=== PATIENT | male | born 1990 | race African-American/Black ===

== ENCOUNTER 2021-06-02 22:43 | Emergency (ER) | payer OTHER, SELFPAY ==
--- NOTE | ~2021-06-02 | CT_ITS ---
EXAMINATION: CT brain wo con DATE: 06/03/2021 02:54 INDICATION: Headache TECHNIQUE: Computed tomography (CT) of the head was performed without intravenous contrast. The mA wa s adjusted according to patient size. Iterative reconstruction technique was employed. Exam dose: 60 5.33 mGy-cm total exam DLP. COMPARISON: 02/22/2012 MR brain FINDINGS: No intracranial mass lesion or hemorrhage or cerebrovascular accident. No midline shift or mass effect effect. Normal ventricular size. Normal avila-white matter differentiation. No subdural or epidural hematoma. The included mastoid air cells and paranasal sinuses are normally developed and aerated. No fracture or bone destruction of the cranial vault. IMPRESSION: No significant abnormality Reviewed, dictated and finalized at [facility]. Reviewed, dictated and finalized at [facility]. IMPRESSION: No significant abnormality
[2021-06-02 23:01] VITALS: BP 124/79; PULSE 92; RESP 16; TEMP 36.7; O2SAT 100
--- NOTE | 2021-06-03 01:14 | PC.NURSE ---
Pt at vending machine purchasing bottle of H20. This RN asked pt if his nausea had resolved since he had not vomited since his arrival in ED. Pt responded that he needed the water BECAUSE he was so nauseous. Verbal education provided by this RN, which pt ignored as he walked back to Family Services room, which was only area in that did not hurt his eyes.
[2021-06-03] MEDS: diphenhydrAMINE HCl INJ 50 MG/ML VIAL IV PUSH (02:18)
[2021-06-03] MEDS: SODIUM CHLORIDE 0.9% IV 1,000 ML 999 ML IV CONT (02:19)
[2021-06-03] MEDS: KETOROLAC 30 MG/ML VIAL (*BKC) IV PUSH (02:19)
[2021-06-03] MEDS: PROCHLORPERAZINE EDISYLATE 10 MG/2 ML VIAL IV PUSH (02:22)
--- NOTE | 2021-06-03 02:45 | ED.GENADULT ---
HPI - General Adult General Chief complaint: Headache Stated complaint: headache Time Seen by Provider: 06/03/21 01:51 History of Present Illness HPI narrative: Patient is a 30-year-old gentleman who presents the emergency department with chief complaint of headache. Patient reports he is having photophobia and nausea reports that started this evening but has had several other headaches recently patient did report that about a week ago he was struck in the head while he was playing basketball the patient reports no loss of consciousness but states that these episodes started after that patient states he is having no focal neurological deficit reports that it is more in the right eye area and radiates back through his head. Review of Systems Review of Systems: Narrative: A 10 system review of systems was completed on the patient and is negative except for what is stated in the HPI. Nursing and ancillary documentation was reviewed. Exam Narrative: Exam Narrative: GENERAL: Well-appearing, well-nourished, and in no acute distress. HEAD: Normocephalic, atraumatic. EYES: PERRLA and EOMI. ENT: Nares clear, no rhinorrhea or epistaxis. Mucous membranes moist. NECK: Supple. CHEST: Clear to auscultation. No respiratory distress. HEART: Regular rate and rhythm. No murmur heard. Normal peripheral pulses. ABDOMEN: Soft, nontender, nondistended, normal active bowel sounds. EXTREMITIES: Normal range of motion. No edema. SKIN: Warm, dry, no rash. NEURO: No focal deficits. Alert and oriented x3. PSYCH: Normal mood and affect. Course Vital Signs Vital signs: Vital Signs Temperature 36.7 C 06/02/21 23:01 Pulse Rate 92 06/02/21 23:01 Respiratory Rate 16 06/02/21 23:01 Blood Pressure 124/79 06/02/21 23:01 Pulse Oximetry 100 06/02/21 23:01 Temperature 36.7 C 06/02/21 23:01 Pulse Rate 92 06/02/21 23:01 Respiratory Rate 16 06/02/21 23:01 Blood Pressure 124/79 06/02/21 23:01 Pulse Oximetry 100 06/02/21 23:01 Medical Decision Making Vital Signs Vital Signs: Vital Signs Temperature 36.7 C 06/02/21 23:01 Pulse Rate 92 06/02/21 23:01 Respiratory Rate 16 06/02/21 23:01 Blood Pressure 124/79 06/02/21 23:01 Pulse Oximetry 100 06/02/21 23:01 Temperature 36.7 C 06/02/21 23:01 Pulse Rate 92 06/02/21 23:01 Respiratory Rate 16 06/02/21 23:01 Blood Pressure 124/79 06/02/21 23:01 Pulse Oximetry 100 06/02/21 23:01 Discharge Plan Discharge Clinical Impression: Headache Qualifiers: Headache type: unspecified Headache chronicity pattern: acute headache Intractability: not intractable Qualified Code(s): R51.9 - Headache, unspecified Patient Disposition: Home, Self-Care Condition: Stable Instructions: Antibiotic Form, Acute Headache (ED) Follow-up/Referrals: PHYSICIAN NOT ON STAFF,NONSTAFF [Primary Care Provider] - Time of Disposition: 03:43
== END 2021-06-03 04:22 | disposition home or self-care (01) ==
PROVIDERS: Emergency Provider Emergency Medicine
DX: R51.9 Headache, unspecified (principal)
CPT/HCPCS: 70450; 96361; 96374; 96375; 99284; J0780; J1200; J1885; J7030

== ENCOUNTER 2023-08-19 18:27 | Emergency (ER) | payer OTHER, SELFPAY ==
--- NOTE | ~2023-08-19 | CT_ITS ---
EXAMINATION: CTA brain carotid DATE: 08/19/2023 23:26 INDICATION: Cerebrovascular accident. Right arm tingling. Head pressure. TECHNIQUE: Computed tomographic angiography (CTA) of the head was performed without and with 100 mL O mnipaque-350 intravenous contrast. CTA of the neck was performed with intravenous contrast. Automated exposure control and iterative reconstruction technique were employed. The dose-length product was 1 914.10 mGy-cm. Maximum intensity projection and volume rendered 3D-reconstructions were created by bridgette dunne technologist on a separate workstation. COMPARISON: Head CT 06/03/2021, brain MRI 02/22/2012 FINDINGS: HEAD CTA: There is no intracranial hemorrhage, acute infarction, or abnormal intracranial mass lesion . The ventricles are normal in size. The paranasal sinuses are clear. The mastoid air cells are xiao l. The orbits are normal. The vertebral arteries are codominant. There is no significant stenosis of basilar artery or the posterior cerebral arteries. There is no significant stenosis of the intracrani al internal carotid arteries or anterior or middle cerebral arteries. Anterior communicating artery i s normal. The posterior communicating arteries are normal. There is no aneurysm. NECK CTA: There are no pathologically enlarged lymph nodes. There is no significant stenosis of the v ertebral arteries. The cervical carotid arteries are normal. There is 0% stenosis of the proximal rig ht internal carotid artery relative to normal distal artery lumen diameter (NASCET criteria). There i s 0% stenosis of the proximal left internal carotid artery relative to normal distal artery lumen shira meter. There is kyphosis of cervical spine. IMPRESSION: 1. Normal brain. No aneurysm or significant intracranial arterial stenosis. 2. 0% stenosis of the proximal internal carotid arteries relative to normal distal artery lumen diame ters (NASCET criteria). Reviewed, dictated and finalized at [facility]. IMPRESSION: 1. Normal brain. No aneurysm or significant intracranial arterial stenosis. 2. 0% stenosis of the proximal internal carotid arteries relative to normal dis sherin artery lumen diameters (NASCET criteria).
[2023-08-19 18:28] VITALS: BP 127/84; PULSE 60; RESP 18; TEMP 36.4; O2SAT 100
[2023-08-19 21:59] VITALS: BP 134/91; PULSE 72; RESP 18; O2SAT 100
--- NOTE | 2023-08-19 22:09 | ED.GENADULT ---
HPI - General Adult General Chief complaint: Headache Stated complaint: Head pressure, vision floaters, arm tingling Time Seen by Provider: 08/19/23 21:53 History of Present Illness HPI narrative: 32-year-old male presented to the ED for evaluation of intermittent right-sided headache, some blurred vision and some right arm tingling. Patient reports a prior history of migraine headache and states his headache is very similar. Patient reports the headache has been intermittent for the last week and the vision change has been intermittent over the last few days. Patient reports he did take some ibuprofen for pain control yesterday and this did help with his headache. Patient did not take any ibuprofen today. Patient states that he is not having blurred vision necessarily but states he suspects he may have some floaters. Patient states he has had some tingling of the right arm but denies any associated numbness or weakness. Related Data Allergies Allergy/AdvReac Type Severity Reaction Status Date / Time No Known Allergies Allergy Verified 08/19/23 18:28 Review of Systems Review of Systems: All systems reviewed & are unremarkable except as noted in HPI and below Exam Narrative: APPEARANCE: Well appearing, no pain, no distress, well-nourished. HEAD: normocephalic, atraumatic. EYES: PERRLA/EOMI, conjunctivae clear. NOSE: Normal no drainage EARS:TMS clear with good light reflex. THROAT: Pharynx clear, no exudate. NECK: Supple. No adenopathy, no masses. RESPIRATORY: Airway patent, respirations nonlabored. Clear to auscultation bilaterally, no rales, rhonchi, wheezing. CARDIOVASCULAR: Regular rate and rhythm without murmurs rubs or gallops. ABDOMINAL: Soft, nontender, nondistended, normal bowel sounds MUSCULOSKELETAL: Moves all extremities. Strength/ROM intact, No edema, No calf tenderness. NEURO: Alert. Cranial nerves II through XII intact. Normal comprehensive neuro exam SKIN: Warm, dry. Normal Color Course Course Emergency Course: 32-year-old male presented ED for evaluation of headache. Patient had negative imaging. Patient did feel improved with treatment. On reevaluation patient states he has no headache denies any vision changes and denies any numbness or tingling of his right arm. Low concern for CVA. Symptoms are more consistent with complex migraine. All question concerns were addressed. Patient was encouraged of close follow-up with primary care physician but is also being provided follow-up with neurology. All questions concerns were addressed. Vital Signs Vital signs: Vital Signs Temperature 97.6 F 08/19/23 18:28 Pulse Rate 60 08/19/23 18:28 Respiratory Rate 18 08/19/23 18:28 Blood Pressure 127/84 08/19/23 18:28 Pulse Oximetry 100 08/19/23 18:28 Oxygen Delivery Room Air 08/19/23 18:28 Temperature 97.6 F 08/19/23 18:28 Pulse Rate 70 08/20/23 01:15 Respiratory Rate 20 08/20/23 01:15 Blood Pressure 140/92 H 08/20/23 01:15 Pulse Oximetry 100 08/20/23 01:15 Oxygen Delivery Room Air 08/19/23 18:28 Medical Decision Making Differential Diagnosis Differential Diagnosis: Migraine, complex migraine, TIA, CVA Vital Signs Vital Signs: Vital Signs Temperature 97.6 F 08/19/23 18:28 Pulse Rate 60 08/19/23 18:28 Respiratory Rate 18 08/19/23 18:28 Blood Pressure 127/84 08/19/23 18:28 Pulse Oximetry 100 08/19/23 18:28 Oxygen Delivery Room Air 08/19/23 18:28 Temperature 97.6 F 08/19/23 18:28 Pulse Rate 70 08/20/23 01:15 Respiratory Rate 20 08/20/23 01:15 Blood Pressure 140/92 H 08/20/23 01:15 Pulse Oximetry 100 08/20/23 01:15 Oxygen Delivery Room Air 08/19/23 18:28 Lab Data Lab results reviewed: Yes I reviewed the patient's lab results. 08/19/23 22:11 08/19/23 22:11 Labs: Lab Results 08/19/23 Range/Units 22:11 WBC 4.9 (4.5-10.0) K/mm3 RBC 4.90 (4.6-6.20) M/mm3 Hgb 15.5
[2023-08-19 22:15] LABS: Basophils Percent Auto 0.4 % (0.2-1.2); Eosinophils Absolute Auto 0.1 K/mm3 (0-0.3); Eosinophils Percent Auto 1.4 % (0-4.4); Hematocrit 45.5 % (42.0-52.0); Hemoglobin 15.5 g/dL (14.0-18.0); Immature Granulocyte Absolute 0.01 K/mm3 (0.00-0.031); Immature Granulocyte Percent A 0.2 % (0-0.5); Lymphocytes Absolute Auto 2.48 K/mm3 (0.9-3.2); Lymphocytes Percent Auto 51.1 % (18.3-44.2); Mean Corpuscular HGB Conc 34.1 g/dl (32-36); Mean Corpuscular Hemoglobin 31.6 pg (26-34); Mean Corpuscular Volume 92.9 fl (80-100); Mean Platelet Volume 10.3 fl (7.4-10.4); Monocytes Absolute Auto 0.4 K/mm3 (0.1-0.6); Monocytes Percent Auto 8.7 % (2.6-8.5); Neutrophils Absolute Auto 1.9 K/mm3 (1.3-6.7); Neutrophils Percent Auto 38.2 % (45.5-73.1); Platelet Count Result 254 k/mm3 (150-375); Red Cell Distribution Width 11.8 % (11.5-14.5); White Blood Count 4.9 K/mm3 (4.5-10.0)
[2023-08-19 22:25] LABS: Alanine Aminotransferase 27 U/L (6-50); Albumin Level 4.9 g/dL (3.5-5.1); Alkaline Phosphatase 47 U/L (38-126); Anion Gap 8 mmol/L (8-16); Aspartate Amino Transferase 35 U/L (17-59); Bilirubin,Total 0.5 mg/dL (0.2-1.3); Blood Urea Nitrogen 19 mg/dL (9-20); Calcium 9.4 mg/dL (8.4-10.2); Carbon Dioxide 27 mmol/L (22-30); Chloride 104 mmol/L (98-107); Estimated CRCL calculation 95 ml/min; Estimated Glomerular Filt Rate > 60; Glucose 94 mg/dL (65-110); Potassium 4.3 mmol/L (3.4-5.0); Sodium 139 mmol/L (137-145)
[2023-08-19 22:27] LABS: Partial Thromboplastin Time 39.9 SECONDS (22.3-36.8); Prothrombin Time 13.8 Seconds (11.1-14.7)
[2023-08-19] MEDS: SODIUM CHLORIDE 0.9% IV 1,000 ML 999 ML IV CONT (22:59)
[2023-08-19] MEDS: diphenhydrAMINE HCl INJ 50 MG/ML VIAL 25 MG IV PUSH (23:01)
[2023-08-19] MEDS: PROCHLORPERAZINE EDISYLATE 10 MG/2 ML VIAL IV PUSH (23:01)
[2023-08-20 01:15] VITALS: BP 140/92; PULSE 70; RESP 20; O2SAT 100
== END 2023-08-20 01:17 | disposition home or self-care (01) ==
PROVIDERS: Emergency Provider Emergency Medicine
DX: R51.9 Headache, unspecified (principal)
CPT/HCPCS: 36415; 70496; 70498; 80053; 85025; 85610; 85730; 96361; 96374; 96375; 99284; J0780; J1200; J7030; Q9967

== ENCOUNTER 2025-06-14 10:26 | Emergency (ER) | payer OTHER, SELFPAY ==
--- NOTE | 2025-06-14 10:28 | ED_ITS ---
HPI - General Adult General Stated complaint: BOWEL/RECTAL ISSUE Time Seen by Provider: 06/14/25 10:27 Source: patient Mode of arrival: ambulatory Limitations: no limitations History of Present Illness HPI narrative: Patient is a 34-year-old male who presents with concern for blood when wiping yesterday. States he had a large hard bowel movement. Denies any blood in toilet water. Has been taking MiraLax in states he had normal bowel movement this morning. Denies any abdominal pain. Related Data Home Medications ?Medication ?Instructions ?Recorded ?Confirmed ?Last Taken ?Type atogepant 60 mg tablet (Qulipta) mg 06/14/25 Unknown History Allergies Allergy/AdvReac Type Severity Reaction Status Date / Time No Known Allergies Allergy Verified 08/19/23 18:28 Review of Systems Review of Systems: All systems reviewed & are unremarkable except as noted in HPI and below Constitutional: Constitutional: Denies body ache(s), Denies chills, Denies fatigue, Denies fever(s), Denies headache(s), Denies malaise and Denies weakness Eyes: Eyes: Denies blurry vision, Denies irritation and Denies loss of vision ENT: Denies otalgia, Denies headache(s), Denies nasal discharge, Denies sinus pain and Denies sore throat Cardiovascular: Cardiovascular: Denies chest pain, Denies irregular heart rhythm and Denies dyspnea Respiratory: Respiratory: Denies dyspnea Gastrointestinal: Gastrointestinal: Denies abdominal pain, Denies melena, Denies hematochezia, Reports constipation, Denies diarrhea, Denies nausea, Denies vomiting and Reports other (blood when wiping) Musculoskeletal: Musculoskeletal: Denies back pain, Denies myalgias and Denies arthralgias Integumentary/Breasts: Skin/Breast: Denies pruritus and Denies rash Neurologic: Denies headache(s), Denies loss of vision and Denies weakness Psychiatric: Psychiatric: Reports no additional psychiatric complaints Endocrine: Endocrine: Denies fatigue PMFSH Comments At time of signature, agree with nursing past medical, surgical, social and family history. There is no relevant family history pertinent to the presenting complaint. Exam Const: General: cooperative, healthy appearing, comfortable, no acute distress and well nourished Nutritional Appearance: well nourished Orientation/consciousness: patient oriented x3 Limitations: no limitations HENMT: Head: normal to inspection, normocephalic and atraumatic Ears: hearing grossly normal bilaterally and external ears normal Face/Nose/Sinus: Normal external nose present, normal facial exam and face symmetric Face and sinus: normal facial exam and face symmetric Mouth: Yes lip normal Eyes: General: appearance normal, both eyes and all related structures Alignment and Position: alignment normal and position normal Periorbital: periorbital findings normal Eyelids: eyelids normal Pupils: Equal, round and reactive pupils present EOM: EOMs intact bilaterally Neck: Neck: normal visual inspection, full ROM and supple Chest: Chest palpation & inspection: normal inspection of the chest Resp: Effort & Inspection: normal respiratory effort and able to speak in complete sentences Auscultation: clear to auscultation bilaterally Cardio: Rate: regular rate Rhythm: regular rhythm Heart sounds: S1 normal heart sound present and S2 normal heart sound present GI: Inspection: normal to inspection Rectal Exam: visual inspection normal, No External hemorrhoid(s) present and Laceration(s) present (GI) (right of anus, superficial abrasion) Skin: General skin exam: normal color and no rashes or lesions noted Neuro: General: patient oriented x3 and moves all extremities Cranial nerves: Yes Equal, round and reactive pupils present Speech: normal speech Gait exam (Neuro): Normal gait present Extrem: General: normal to inspection, full ROM and no edema Psych: Appearance: grossly normal and well kempt Mental Status: mental status grossly normal Speech and movement: Normal speech and movement present Affect: normal affect Attitude: cooperative Thought process: Normal thought process present Course Course Emergency Course: Patient is aware of diagnosis, understands and agrees to treatment plan. Anticipatory guidance given. Patient agrees to follow-up as directed and is aware of reasons to seek care at the emergency department. Portions of this record may have been created with voice recognition software Level of Care: Express Care Visit Vital Signs Vital signs: Reviewed Medical Decision Making MDM Narrative Medical decision making narrative: Pt well hydrated appearing, in no respiratory distress, hemodynamically stable. Recommend supportive care. The patient is stable at time of discharge the clinical impression was discussed and the patient was given the opportunity to ask questions, which were addressed as completely as possible given the information available at present. Anticipatory guidance and return to care precautions were discussed and the importance of primary care follow-up was stressed and encouraged. The patient voiced understanding of the plan, indicat ions to return, and the need for follow-up. Exam findings show no acute concerns or changes Patient is appropriate for outpatient treatment and follow-up. Differential Diagnosis Differential Diagnosis: Constipation, anus abrasion, hemorrhoids Medical Records Medical records reviewed: Yes I reviewed the external patient's medical records. Vital Signs Vital Signs: Reviewed Discharge Plan Discharge Clinical Impression: Abrasion of skin of anus Constipation Qualifiers: Constipation type: unspecified constipation type Qualified Code(s): K59.00 - Constipation, unspecified Patient Disposition: Home Condition: Stable Instructions: Constipation (ED) Additional Instructions: Take Miralax 1 capful twice daily until bowel movements are regular. To maintain soft stools after constipation is relieved, you may take Colace 100- 200 mg up to three times per day. Maintain fluid intake 6-8 glasses per day. Please increase fibers (fruits and vegetables) in your diet, or use bulk fiber supplements. Decrease or eliminate intake of fast food and junk foods. Use Aquaphor on anus to provide moisture and protection. Follow up with PCP as needed Patient Language: Citizen Of [place] Follow-up/Referrals: Cody,MD Patrick [Non-Staff] - 3 Days Stand Alone Forms: Work/School Release IP Time of Disposition: 10:53
[2025-06-14 10:37] VITALS: BP 126/79; PULSE 85; RESP 16; TEMP 36.8; O2SAT 100
== END 2025-06-14 11:01 | disposition home or self-care (01) ==
PROVIDERS: Emergency Provider Nurse Practitioner Family
DX: S30.817A Abrasion of anus, initial encounter (principal); K59.00 Constipation, unspecified; X58.XXXA Exposure to other specified factors, initial encounter
CPT/HCPCS: 99211; G0463

== ENCOUNTER 2025-07-18 15:14 | Outpatient (CLI) | payer OTHER, SELFPAY ==
--- OUTSIDE RECORDS SUMMARY | 2025-07-18 16:42 | XMS_ITS | Encounter Summary ---
Author Organization [facility] Address [address] [place] [id number] Care Team Providers Care Diagnostic Medical Sonographer Name Role Phone Non-Staff, Provider Primary Care Provider Venkat polk Encounter Details Date Type Department Care Team (Late st Contact Info) Description 07/13/2025 Arte Manifiesto Message [facility] Patient Accounts [address] [place] [address] [employer], [facility] Provider Auto Payment Declined Social History Tobacco Use Types Packs/Day Years Used Date Smoking Tobacco: Never Smokeless Tobacco: Never Alcohol Use Standard Drinks/Week Comments Not Currently 0 (1 standard drink = 0.6 oz pur e alcohol) Sex and Gender Information Value Date Recorded Sex Assigned at Male 02/05/2025 6:26 PM CDT Legal Sex Male 5:51 PM CDT Gender Identity Not on file Sexual Orientation Not on file documented as of this encounter Plan of Treatment Not on file documented as of this encounter Visit Diagnoses Not on filedocumented in this encounter Care Teams Diagnostic Medical Sonographer Relationship Specialty Start Date End Date Non-Staff, Provider PCP - General UNKNOWN PHYSICIAN SPECIALTY 02/05/25 documented as of this encounter
--- OUTSIDE RECORDS SUMMARY | 2025-07-18 16:42 | XMS_ITS | Clinical Summary ---
Author Organization [facility] Address [address] [place] [id number] Care Team Providers Care Soft Sugar Cutter Name Role Phone Non-Staff, Provider Primary Care Provider Venkat polk Allergies No known active allergies Medications No known medications Encounters Date Type Department Care Team Description 07/13/2025 [facility] Patient Accounts [address] [place] [address] [facility] Auto Payment Declined from Last 3 Months Social History Tobacco Use Types Packs/Day Years Used Date Smoking Tobacco: Never Smokeless Tobacco: Never Tobacco Cessation:Counseling Given: Not Answered Alcohol Use Standard Drinks/Week Comments Not Currently 0 (1 standard drink = 0.6 oz pur e alcohol) Sex and Gender Information Value Date Recorded Sex Assigned at Male 02/05/2025 6:26 PM CDT Legal Sex Male 5:51 PM CDT Gender Identity Not on file Sexual Orientation Not on file Last Filed Vital Signs Vital Sign Reading Time Taken Comments Blood Pressure 118/71 02/05/2025 9:14 PM CDT Pulse 94 02/05/2025 9:14 PM CDT Temperature 36.6 C (97.9 F) 02/05/2025 6:01 PM CDT Respiratory Rate 18 02/05/2025 9:14 PM CDT Oxygen Saturation 100% 02/05/2025 9:14 PM CDT Inhaled Oxygen Concentration - - Weight 80.7 kg (178 lb) 02/05/2025 6:01 PM CDT Height 175.3 cm (5' 9) 02/05/2025 6:01 PM CDT Body Mass Index 26.29 02/05/2025 6:01 PM CDT Plan of Treatment Health Maintenance Due Date Last Done Comments Annual Physical 1994 Hepatitis C 2009 DTaP, Tdap and Td Vaccines ( 1 - Tdap) 2010 Hepatitis B Vaccines (1 of 3 - 19+ 3-dose series) 2010 HPV Vaccines (1 - 3-dose SCD M series) 2018 COVID-19 Vaccine (4 - 2023-2 5 season) 2024 11/03/2021, 02/03/2021, 01/01/2021 Meningococcal B Vaccine Aged Out No l onger eligible based on patient's age to complete this topic Meningococcal Vaccine Aged Out No rodrigo gibran eligible based on patient's age to complete this topic Pneumococcal Vaccine: Pediatrics (0 to 5 Years) and At-Risk Patients (6 to 49 Years) Aged Out No longer eligible b ased on patient's age to complete this topic RSV Immunizations Under 20 Months Aged Out No longer eligible b ased on patient's age to complete this topic Insurance [employer] OPEN ACCESS [facility] Care Teams Soft Sugar Cutter Relationship Specialty Start Date End Date Non-Staff, Provider PCP - General UNKNOWN PHYSICIAN SPECIALTY 02/05/25
--- OUTSIDE RECORDS SUMMARY | 2025-07-18 16:42 | XMS_ITS | Clinical Summary ---
Author Organization [facility] Address [address] [place] [phone] Care Team Providers Care Cinder Pitman Name Role Phone Karen Deshpande Angelique ENGINE SPECIALIST Primary Care Provider Allergies No known active allergies Medications Qulipta 60 mg tablet 11/28/2024 Active Ubrelvy 100 mg tablet 11/28/2024 Active amitriptyline (ELAVIL) 10 mg tablet Take 10 mg at bedtime for two weeks, then increase to 20 mg at bedtime 60 tablet 11 05/16/2025 Active Active Problems No known active problems Encounters Date Type Department Care Team Description 05/16/2025 3:00 PM CDT Office Visit [facility] Neurology [address] [place] [phone] Frank Blank MD Migraine without aura and with status migrainosus, not intractable (Primary Dx) 04/20/2025 Results Follow-Up [facility] Neurology [address] [place] [phone] Frank Blank MD MRI Brain W WO Contrast 04/19/2025 4:28 PM CDT - 04/19/2025 11:59 PM CDT Hospital Encounter [facility] MRI [address] [place] [address] Migraine without aura and with status migrainosus, not intractable Discharge Disposition: Discharge to home or self care from Last 3 Months Medical History Medical History Date Comments Concussion Social History Tobacco Use Types Packs/Day Years Used Date Smoking Tobacco: Never Smokeless Tobacco: Never Tobacco Cessation:Counseling Given: Not Answered AUDIT-C Answer Date Recorded Q1: How often do you have a drink containing alc ohol? Monthly or less 12/20/2024 Q2: How many drinks containi ng alcohol do you have on a typical day when you are drinking? 1 or 2 12/20/2024 Q3: How often do you have si x or more drinks on one occasion? Never 12/20/2024 Sex and Gender Information Value Date Recorded Sex Assigned at Not on file Legal Sex Male 2:58 PM [employer] PROFESSION[employer] Gender Identity Not on file Sexual Orientation Not on file Obstetrics History Last Filed Vital Signs Vital Sign Reading Time Taken Comments Blood Pressure 126/72 05/16/2025 3:09 PM CDT Pulse 91 05/16/2025 3:09 PM CDT Temperature - - Respiratory Rate - - Oxygen Saturation 99% 05/16/2025 3:09 PM CDT Inhaled Oxygen Concentration - - Weight 81.6 kg (180 lb) 05/16/2025 3:09 PM CDT Height 175.3 cm (5' 9) 05/16/2025 3:09 PM CDT Body Mass Index 26.58 05/16/2025 3:09 PM CDT Plan of Treatment Health Maintenance Due Date Last Done Comments Depression Screening 1991 Hepatitis C Screening 1991 DTaP/Tdap/Td Vaccine (1 - Tdap) 2002 Varicella Vaccines (1 of 2 - 13+ 2-dose series) 2004 Hepatitis B Screening 2009 Regular Well Visit/Exam 18-64 2009 HPV Vaccines (1 - 3-dose SCD M series) 2018 Covid-19 Vaccine ( - 2023-2 5 season) 2024 11/03/2021, 02/03/2021, 01/01/2021 Influenza Vaccine (#1) 2025 08/17/2016 Pneumococcal vaccine <65 Aged Out No longer eligible based on patient's age to complete this topic Procedures Procedure Name Priority Date/Time Associated Diagnosis Comments MRI BRAIN W WO CONTRAST Schedule Routine, Read Routine (OP Routine) 04/19/2025 5:34 PM CDT Migraine without aura and with status migrainosus, not intractable from Last 3 Months Results * MRI Brain W WO Contrast (04/19/2025 5:34 PM CDT) Anatomical Region Laterality Modality Head and Neck N/A Magnetic Resonan ce 04/20/2025 6:50 AM CDT Narrative 04/20/2025 6:58 AM CDT EXAM DESCRIPTION: MRI BRAIN W WO CONTRAST REASON FOR STUDY: Headache, increasing frequency or severity Headaches, increasing in frequency/severity TECHNIQUE: Multiplanar imaging includes noncontrast T1, T2, FLAIR, diffusion with ADC map and post contrast T1 sequences. Additional sequence(s) sensitive to blood products. Images stored on PACS. CONTRAST TYPE/DOSE: 15mL of GADOTERATE MEGLUMINE 0.5 MMOL/ML INTRAVENOUS SOLUTION (SO) injected via intravenous COMPARISON: None available. FINDINGS: There is no diffusion restriction to suggest acute/recent infarction. No parenchymal susceptibility signal to indicate blood degradation products. Midline retro cerebellar extra-axial T2 hyperintensity following CSF signal all sequences in keeping with a viridiana cisterna magna. There is no hydrocephalus. The basilar cisterns are maintained. On postcontrast imaging, there is no enhancing parenchymal mass. The bilateral globes are symmetric. There is mucosal thickening in the bilateral ethmoid air cells. Trace T2 hyperintensities in the bilateral mastoid air cells. IMPRESSION: 1. No acute/recent infarction or enhancing parenchymal mass. 2. Other findings as above. 3. Previous imaging studies are not available for comparison. THIS IS AN ELECTRONICALLY VERIFIED FINAL REPORT 04/20/2025 6:58 AM - Electronically signed by Jose L DAWKINS T: Report ID: [id number] Reading Location: [id number] Procedure Note Jose L Ross DO - 04/20/2025 EXAM DESCRIPTION: MRI BRAIN W WO CONTRAST REASON FOR STUDY: Headache, increasing frequency or severity Headaches, increasing in frequency/severity TECHNIQUE: Multiplanar imaging includes noncontrast T1, T2, FLAIR,diffusion with ADC map and post contrast T1 sequences. Additional sequence(s)sensitive to blood products. Images stored on PACS. CONTRAST TYPE/DOSE: 15mL of GADOTERATE MEGLUMINE 0.5 MMOL/ML INTRAVENOUS SOLUTION (SO) injected via intravenous COMPARISON: None available. FINDINGS: There is no diffusion restriction to suggest acute/recent infarction. No parenchymal susceptibility signal to indicate blood degradationproducts. Midline retro cerebellar extra-axial T2 hyperintensity following CSFsignal all sequences in keeping with a viridiana cisterna magna. There is no hydrocephalus. The basilar cisterns are maintained. On postcontrast imaging, there is no enhancing parenchymal mass. The bilateral globes are symmetric. There is mucosal thickening in the bilateral ethmoid air cells. Trace T2 hyperintensities in the bilateral mastoid air cells. IMPRESSION: 1. No acute/recent infarction or enhancing parenchymal mass. 2. Other findings as above. 3. Previous imaging studies are not available for comparison. THIS IS AN ELECTRONICALLY VERIFIED FINAL REPORT 04/20/2025 6:58 AM - Electronically signed by Jose L DAWKINS T: Report ID: [id number] Reading Location: [place] [address] Frank Blank MD IMG MRI PROCEDURES Final Resul t from Last 3 Months Insurance [facility] [id number] Care Teams Cinder Pitman Relationship Specialty Start Date End Date Karen Deshpande NP [address] [place] [address] [place] [address] PCP - General Nurse Practitioner 11/29/24
[2025-07-18 18:31] LABS: Hematocrit 43.4 % (42.0-52.0); Hemoglobin 14.8 g/dL (14.0-18.0); Mean Corpuscular HGB Conc 34.1 g/dl (32-36); Mean Corpuscular Hemoglobin 31.2 pg (26-34); Mean Corpuscular Volume 91.4 fl (80-100); Platelet Count Result 240 k/mm3 (150-375); Red Blood Count 4.75 M/mm3 (4.6-6.20); White Blood Count 3.8 K/mm3 (4.5-10.0)
[2025-07-18 18:43] LABS: Alanine Aminotransferase 29 U/L (6-50); Albumin Level 4.6 g/dL (3.5-5.1); Alkaline Phosphatase 55 U/L (38-126); Anion Gap 5 mmol/L (4-12); Aspartate Amino Transferase 42 U/L (17-59); Bilirubin,Total 0.4 mg/dL (0.2-1.3); Blood Urea Nitrogen 18 mg/dL (9-20); Calcium 9.4 mg/dL (8.4-10.2); Carbon Dioxide 29 mmol/L (22-30); Chloride 103 mmol/L (98-107); Cholesterol 165 mg/dL (0-200); Estimated Glomerular Filt Rate > 60; Glucose 93 mg/dL (65-110); HDL Direct 54 mg/dL; Potassium 4.1 mmol/L (3.4-5.0); Sodium 137 mmol/L (137-145); Total Protein 8.0 g/dL (6.3-8.2); Triglycerides 161 mg/dL (<150)
[2025-07-18 19:04] LABS: Hemoglobin A1C 5.6 % (<5.7)
[2025-07-18 19:08] LABS: Thyroid Stimulating Hormone Reflex 2.020 uIU/mL (0.465-4.68)
== END 2025-07-18 15:15 | disposition home or self-care (01) ==
LOC: ANHGOSHLAB 15:15
DX: Z00.00 Encounter for general adult medical examination without abnormal findings (principal); E55.9 Vitamin D deficiency, unspecified
CPT/HCPCS: 36415; 80053; 80061; 82306; 83036; 84443; 85027